=== PATIENT | female | born 1985 | race Caucasian/White ===

== ENCOUNTER 2017-03-01 12:07 | Emergency (ER) | payer MEDICAID, OTHER ==
[~2017-03-01] VITALS: Ht 157.5 cm; Wt 95.3 kg
[2017-03-01 12:14] VITALS: BP_SYST 153
[2017-03-01] MEDS ORDERED: IPRATROPIUM/ALBUTEROL SULFATE 3 ML AMPUL.NEB INH ONE (12:30)
[2017-03-01] MEDS ORDERED: KETOROLAC TROMETHAMINE 60 MG/2 ML VIAL IM ONE (12:45)
[2017-03-01 12:58] LABS: BASOPHILS % (AUTO) 0.2 % (0.0-2.0); EOSINOPHILS # (AUTO) 0.2 K/uL (0.0-0.4); EOSINOPHILS % (AUTO) 1.7 % (0.0-4.0); HEMATOCRIT 40.6 % (36-48); HEMOGLOBIN 13.4 g/dL (12.0-16.0); LYMPHOCYTES # (AUTO) 1.7 K/uL (1.0-5.5); LYMPHOCYTES % (AUTO) 18.9 % (20.5-51.5); MEAN CORPUSCULAR HEMOGLOBIN 28 pg (27-31); MEAN CORPUSCULAR HGB CONC 33 % (32-36); MEAN CORPUSCULAR VOLUME 86 fL (79.0-98.0); MONOCYTES # (AUTO) 0.8 K/uL (0.0-1.0); MONOCYTES % (AUTO) 8.3 % (1.7-9.3); NEUTROPHILS # (AUTO) 6.4 K/uL (1.8-7.7); NEUTROPHILS % (AUTO) 70.9 % (40.0-70.0); PLATELET COUNT (AUTO) 236 K/uL (130-430); RED BLOOD CELL COUNT(AUTO) 4.75 MIL/uL (4.2-6.2); RED CELL DISTRIBUTION WIDTH 12.3 % (9.0-15.0); WHITE BLOOD COUNT (AUTO) 9.1 K/uL (4.8-10.8)
[2017-03-01] MEDS ORDERED: PANTOPRAZOLE SODIUM 40 MG/VIAL (PROTONIX) IVP ONE (13:00)
[2017-03-01 13:10] LABS: CALCIUM 8.9 mg/dL (8.4-11.0); CREATININE 0.71 mg/dL (0.55-1.30); POTASSIUM 3.9 mmol/L (3.5-5.1)
[2017-03-01 13:20] LABS: ALBUMIN 3.2 g/dL (3.4-4.8); TOTAL BILIRUBIN 0.4 mg/dL (0.0-1.0)
[2017-03-01] MEDS ORDERED: MORPHINE 4 MG/ML INJ. SYRINGE IVP ONE (13:30)
[2017-03-01] MEDS ORDERED: CYCLOBENZAPRINE HCL 10 MG TABLET (FLEXERIL) PO ONE (14:30)
[2017-03-01] MEDS ORDERED: IBUPROFEN 800 MG TABLET PO ONE (14:30)
[2017-03-01 14:48] VITALS: BP_SYST 153
== END 2017-03-01 14:48 | disposition home or self-care (01) ==
LOC: SED 12:07
DX: R07.89 Other chest pain (principal); M54.9 Dorsalgia, unspecified
CPT/HCPCS: 36415; 71010; 80053; 82550; 83880; 84484; 84702; 85025; 85379; 93005; 94640; 99285; C9113; J1885; J2270

== ENCOUNTER 2019-01-09 11:10 | Emergency (ER) | payer MEDICAID, OTHER ==
[~2019-01-09] VITALS: Ht 160 cm; Wt 79.8 kg
[2019-01-09 11:19] VITALS: BP_SYST 118
[2019-01-09] MEDS ORDERED: BACITRACIN 1 GM OINT TP ONE (11:45)
[2019-01-09] MEDS ORDERED: DIPH-TET-PERTUS Vaccine 0.5 ML VIAL (ADACEL) IM ONE (11:45)
[2019-01-09] MEDS ORDERED: LIDOCAINE 1% 10 MG/ML, 20 ML MDV IJ ONE (11:45)
[2019-01-09 12:56] VITALS: BP_SYST 118
== END 2019-01-09 12:56 | disposition home or self-care (01) ==
LOC: SED 11:10
DX: S91.312A Laceration without foreign body, left foot, initial encounter (principal); I10 Essential (primary) hypertension; Z90.49 Acquired absence of other specified parts of digestive tract; W20.8XXA Other cause of strike by thrown, projected or falling object, initial encounter; Y93.89 Activity, other specified; Y92.89 Other specified places as the place of occurrence of the external cause; Y99.8 Other external cause status
CPT/HCPCS: 90471; 12001; 90715; 99283; J2001

== ENCOUNTER 2019-01-22 11:57 | Emergency (ER) | payer MEDICAID ==
[~2019-01-22] VITALS: Ht 157.5 cm; Wt 78.5 kg
[2019-01-22 12:14] VITALS: BP_SYST 118
--- NOTE | 2019-01-22 12:15 | NUR ---
Note undone in ED - 01/22/19 at 1410 by SDEDTD Patient presented to ER with request for suture removal. Patient A&Ox4, ambulatory to ER with, patient states suture were place in [facility] ER 01/09/19, patient states foot is tender to touch, patient pain 0/10, denies N/V/D. Reddness with slight swelling noted to suture site, sutures dry and wella pproxamated, no drainage.
--- NOTE | 2019-01-22 12:18 | NUR ---
Patient to ER bed 7 to gown for evaluation. Side rails up. Report given to Candy DAVID.
--- NOTE | 2019-01-22 12:20 | NUR ---
Patient presented to ER with request for suture removal. Patient A&Ox4, ambulatory to ER with, patient states suture were place in [facility] ER 01/09/19, patient states foot is tender to touch, patient pain 0/10, denies N/V/D. Reddness with slight swelling noted to suture site, sutures dry and wella pproxamated, no drainage.
--- NOTE | 2019-01-22 12:25 | NUR ---
ER Dr. Ramsey at bedside examining patient.
--- NOTE | 2019-01-22 12:30 | NUR ---
Removed 2 sutures from left foot
[2019-01-22 12:40] VITALS: BP_SYST 118
--- NOTE | 2019-01-22 12:40 | NUR ---
Patient given written and verbal discharge instructions and verbalizes understanding. ER MD discussed with patient the results and treatment provided. Patient in stable condition. ID arm band removed. No Rx given. Patient educated on pain management and to follow up with PMD. Pain Scale 0/10. Opportunity for questions provided and answered. Medication side effect fact sheet provided.
== END 2019-01-22 12:40 | disposition home or self-care (01) ==
LOC: SED 11:57
DX: S91.312D Laceration without foreign body, left foot, subsequent encounter (principal); Z48.02 Encounter for removal of sutures; W20.8XXD Other cause of strike by thrown, projected or falling object, subsequent encounter
CPT/HCPCS: 99281

== ENCOUNTER 2022-08-28 19:08 | Emergency (ER) | payer MEDICAID ==
[~2022-08-28] VITALS: Ht 157.5 cm; Wt 108.9 kg
[2022-08-28 19:15] VITALS: BP_SYST 186
--- NOTE | 2022-08-28 22:12 | NUR ---
Patient to ER bed GARCÍA to gown for evaluation. Side rails up. Report given to MARILYN DAVID.
--- NOTE | 2022-08-28 22:18 | NUR ---
Report received from JOANN Joseph; assuming patient care at this time.
--- NOTE | 2022-08-28 22:20 | NUR ---
Patient presents to ED from home with c/o headache x1 week worsening today. Patient reports pain 10/10 on right side of head. Patient reports right ear ache and neck pain at this time. Patient denies SOB, chest pain, dizziness, vomiting, diarrhea, and/or visual disturbances at this time. Patient states "I just have a really bad headache and it goes down to my ear. I wanted to come in to get something for my headache." Patient A/Ox4, VSS, ambulatory, resp even and unlabored. Patient afebrile. Skin warm, dry, intact, color wnl for ethnicity. Nad noted at this time. Patient resting comfortably in bed with safety precautions in place. ER MD made aware.
--- NOTE | 2022-08-28 22:39 | NUR ---
ER MD Sing examing patient at bedside.
[2022-08-28] MEDS ORDERED: METOCLOPRAMIDE HCL 10 MG/2 ML VIAL IVP ONE (22:45)
[2022-08-28] MEDS ORDERED: DIPHENHYDRAMINE INJ 50 MG/ML VIAL IVP ONE (22:45)
--- NOTE | 2022-08-28 23:15 | NUR ---
# 22 gauge angiocath placed to LEFT AC. Use of asceptic technique. Opsite placed over site. Blood return noted. Flushed with 10 cc of normal saline. No evidence of infiltration noted. Patient tolerated well.
[2022-08-28] MEDS ORDERED: KETOROLAC TROMETHAMINE 30 MG VIAL IVP ONE (23:30)
[2022-08-29] MEDS ORDERED: TRAM50TA2 PO (00:20)
[2022-08-29] MEDS ORDERED: IBUP-1969 PO (00:20)
[2022-08-29 00:30] VITALS: BP_SYST 140
--- NOTE | 2022-08-29 00:30 | NUR ---
Patient given written and verbal discharge instructions and verbalizes understanding. ER MD discussed with patient the results and treatment provided. Patient in stable condition. ID arm band removed. IV catheter removed intact and dressing applied, no active bleeding. Rx of Ibuprofen and Tramadol given. Patient educated on pain management and to follow up with PMD. Pain Scale 2/10. Opportunity for questions provided and answered. Medication side effect fact sheet provided. Patient A/Ox4, VSS, ambulatory, resp even and unlabored. Nad noted at this time.
== END 2022-08-29 00:30 | disposition home or self-care (01) ==
LOC: SED 19:08
DX: R51.9 Headache, unspecified (principal); R11.0 Nausea; H53.149 Visual discomfort, unspecified; I10 Essential (primary) hypertension; Z79.899 Other long term (current) drug therapy
CPT/HCPCS: 99285; 96374; 70450; 96375; 76376; 81025; J1200; J1885; J2765